=== PATIENT | female | born 1980 | race African-American/Black ===

== ENCOUNTER 2021-03-22 19:21 | Inpatient (IN) | payer OTHER ==
[~2021-03-22] VITALS: Ht 162.6 cm; Wt 95.5 kg
[2021-03-22] VITALS (58 sets, daily range): BP systolic 144; BP diastolic 97; PULSE 108; TEMP 98.3; O2SAT 87–98
[2021-03-22] MEDS ORDERED: ALBUTEROL1.25 MG/3 IH (19:58)
[2021-03-22] MEDS ORDERED: SINGULAIR 110 MG/TAB PO (19:59)
[2021-03-22] MEDS ORDERED: BRIDION200 MG/2 M IV (19:59)
[2021-03-22 20:01] LABS: HEMATOCRIT 37.3 % (37.0-47.0); HEMOGLOBIN 13.1 g/dl (12.5-16.0); MEAN CELL VOLUME 86 fl (80.0-100.0); MEAN CORPUSCULAR HEMOGLOBIN 30 pg (27.0-31.0); MEAN CORPUSCULAR HGB CONC 35 g/dl (33.0-37.0); MEAN PLATELET VOLUME 10.6 fl (7.4-10.4); PLATELET COUNT 259 K/mm3 (130-400); RED BLOOD COUNT 4.35 M/mm3 (4.10-5.30); REDCELL DISTRIBUTION WIDTH-CV 12.1 % (11.5-14.5)
[2021-03-22 20:15] LABS: ALBUMIN 4.3 gm/dL (3.5-5.0); BILIRUBIN,TOTAL 0.3 mg/dL (0.0-1.0); CALCIUM 9.1 mg/dL (8.4-10.2); CREATININE, serum 0.63 (0.52-1.25); TOTAL PROTEIN 7.8 gm/dL (6.4-8.2)
[2021-03-22 20:38] LABS: BAND 9 % (0-10); LYMPHOCYTE 4 % (20.0-51.0); NEUTROPHILS 86 % (42.0-75.2); PLATELET ESTIMATE NORMAL (NORMAL)
[2021-03-22] MEDS ORDERED: BREO ELLIPTA 21 EACH IH (22:22)
[2021-03-23] VITALS (622 sets, daily range): BP systolic 128–166; BP diastolic 68–110; PULSE 78–122; TEMP 98–99.4; O2SAT 86–100
[2021-03-23 02:12] LABS: ARTERIAL BLD GAS O2 SATURATION 90.9 % (92-100); ARTERIAL BLD GAS TCO2 CT 17.2; ARTERIAL BLOOD GAS BASE EXCESS -7.1 (-2-2); ARTERIAL BLOOD GAS HCO3 16.4 meq/L (22-26); ARTERIAL BLOOD GAS PCO2 27.8 mmHg (35-45); ARTERIAL BLOOD GAS PO2 60.8 mmHg (80-100); ARTERIAL BLOOD GAS pH 7.39 (7.35-7.45)
[2021-03-23 05:44] LABS: HEMATOCRIT 37.2 % (37.0-47.0); HEMOGLOBIN 12.8 g/dl (12.5-16.0); MEAN CELL VOLUME 86 fl (80.0-100.0); MEAN CORPUSCULAR HEMOGLOBIN 30 pg (27.0-31.0); MEAN CORPUSCULAR HGB CONC 34 g/dl (33.0-37.0); MEAN PLATELET VOLUME 10.8 fl (7.4-10.4); PLATELET COUNT 275 K/mm3 (130-400); RED BLOOD COUNT 4.33 M/mm3 (4.10-5.30); REDCELL DISTRIBUTION WIDTH-CV 12.3 % (11.5-14.5)
[2021-03-23 05:57] LABS: CREATININE, serum 0.52 (0.52-1.25); MAGNESIUM 2.4 mg/dL (1.6-2.3); POTASSIUM 4.2 mmol/L (3.4-5.0)
[2021-03-23 06:21] LABS: BAND 8 % (0-10); BASOPHIL 1 % (0-2); EOSINOPHIL 1 % (0-4); LYMPHOCYTE 3 % (20.0-51.0); NEUTROPHILS 87 % (42.0-75.2); PLATELET ESTIMATE NORMAL (NORMAL)
--- NOTE | 2021-03-23 07:22 | NUR ---
BEDSIDE SHIFT REPORT RECEIVED FROM TORRES MONROE. PATIENT CURRENTLY ON BIPAP AND RESTING COMFORTABLY IN BED. VSS. NS INFUSING AT 100ML/HR. CALL LIGHT WITHIN REACH.
[2021-03-24] VITALS (596 sets, daily range): BP systolic 125–159; BP diastolic 69–86; PULSE 40–104; TEMP 98.3–98.7; O2SAT 90–100
[2021-03-24 04:20] LABS: HEMOGLOBIN 11.9 g/dl (12.5-16.0); MEAN CELL VOLUME 87 fl (80.0-100.0); MEAN CORPUSCULAR HEMOGLOBIN 30 pg (27.0-31.0); MEAN CORPUSCULAR HGB CONC 34 g/dl (33.0-37.0); PLATELET COUNT 257 K/mm3 (130-400); RED BLOOD COUNT 4.01 M/mm3 (4.10-5.30); REDCELL DISTRIBUTION WIDTH-CV 12.5 % (11.5-14.5)
[2021-03-24 04:31] LABS: CALCIUM 8.4 mg/dL (8.4-10.2); CREATININE, serum 0.51 (0.52-1.25); POTASSIUM 4.3 mmol/L (3.4-5.0)
[2021-03-24 04:32] LABS: HEMATOCRIT 34.7 % (37.0-47.0)
[2021-03-24 05:08] LABS: BAND 7 % (0-10); LYMPHOCYTE 4 % (20.0-51.0); NEUTROPHILS 88 % (42.0-75.2)
[2021-03-24 05:09] LABS: PLATELET ESTIMATE NORMAL (NORMAL)
[2021-03-24] MEDS ORDERED: PROAIR DIGIHAL90 MCG IH (15:37)
[2021-03-24] MEDS ORDERED: PREDNISONE20 MG PO (15:41)
== END 2021-03-24 16:40 | disposition home or self-care (01) | DRG 202 ==
LOC: COL.ER 19:21 → ICU 21:36
PROVIDERS: Personal Emergency Response Attendant; Student in an Organized Health Care Education/Training Program; ADMIT Student in an Organized Health Care Education/Training Program
PROC: 5A09357 Assistance with Respiratory Ventilation, Less than 24 Consecutive Hours, Continuous Positive Airway Pressure (ICD-10-PCS; principal; 2021-03-23)
DX: J45.901 Unspecified asthma with (acute) exacerbation (principal); J96.01 Acute respiratory failure with hypoxia; J12.9 Viral pneumonia, unspecified; R00.0 Tachycardia, unspecified; Z20.822 Contact with and (suspected) exposure to COVID-19
CPT/HCPCS: 99223-AI; 99233-AI; 99239; J0456; J0696; J1650; J2060; J2930; J3475; J7030; J7050